=== PATIENT | female | born 1990 | race African-American/Black ===

== ENCOUNTER 2018-05-21 13:53 | Emergency (ER) | payer BC, OTHER ==
[2018-05-21 15:03] LABS: #Basophils 0.1 thou/uL (0.0-0.2); #Eosinphils 0.3 thou/uL (0.0-0.7); #Lymphocytes 2.3 thou/uL (1.20-3.40); #Monocytes 0.6 thou/uL (0.11-0.59); #Neutrophils 5.1 thou/uL (1.40-6.50); %Basophils 0.6 % (0.0-1.0); %Eosinophils 3.4 % (0.0-10.0); %Lymphocytes 27.7 % (21.0-51.0); %Monocytes 7.1 % (0.0-10.0); %Neutrophils 61.3 % (42.0-75.0); Hemoglobin 13.2 g/dL (12.0-16.0); Mean Corpuscular HGB CONC 32.5 g/dL (32.0-36.0); Mean Corpuscular Hemoglobin 27.8 pg (27.0-31.0); Mean Corpuscular Volume 85.5 fL (78.0-98.0); Platelet Count 344 thou/uL (130-400); RBC Distribution Width 11.9 % (11.5-14.5); Red Blood Cell (RBC) Count 4.75 mill/uL (4.20-5.40); White Blood Cell (WBC) Count 8.4 thou/uL (4.8-10.8)
[2018-05-21 15:05] LABS: Bilirubin Negative (Negative); Blood, Urine Negative (Negative); Clarity CLEAR (Clear); Glucose, Urine (Dipstick) Negative (Negative); Leukocyte Small (Negative); Nitrite Negative (Negative); Protein, Urine (Dipstick) Negative (Neg-Trace); Specific Gravity, Urine 1.022 (1.002-1.036); pH, Urine 6.5 (5.0-9.0)
[2018-05-21 15:06] LABS: Bacteria/HPF Rare-Few HPF (None Seen); Hyaline Casts/LPF 0-3 HYALINE CAST LPF (0-3 Hyaline); Pregnancy Test - Urine (BHCG) Negative (Negative); Pregu Control Background? CLEAR/WHITE (CLR/WHITE); Pregu Control Bar Appear? YES (CONTROL BAR); RBC/HPF 0-3 HPF (0-3); Specific Gravity 1.022 (1.002-1.036); WBC/HPF 0-3 HPF (0-3)
[2018-05-21 15:23] LABS: ALT (SGPT) 15 U/L (8-55); AST (SGOT) 16 U/L (5-34); Albumin 4.1 g/dL (3.5-5.0); Alkaline Phosphatase 64 U/L (40-150); Anion Gap 9 mmol/L (10-20); BUN (Urea Nitrogen) 9 mg/dL (7.0-18.7); Bilirubin, Total 0.4 mg/dL (0.2-1.2); Calc. Creatinine Clearance 0 mL/min (70-130); Calcium 9.2 mg/dL (7.8-10.44); Carbon Dioxide 28 mmol/L (22-29); Chloride 105 mmol/L (98-107); Estimated GFR-MDRD Greater than 90; Globulin 3.6 g/dL (2.4-3.5); Glucose 93 mg/dL (70-105); Potassium 4.4 mmol/L (3.5-5.1); Protein, Total 7.7 g/dL (6.0-8.3); Sodium 138 mmol/L (136-145)
[2018-05-21] MEDS ORDERED: cefTRIAXone\\ROCEPHIN 250 MG VIAL ONE (15:32)
[2018-05-21] MEDS ORDERED: Lidocaine 1% (PF) 30 ML VIAL ONE (15:32)
[2018-05-23 20:16] LABS: Chlamydia by PCR Not Detected (NotDetected); GC by PCR Not Detected (NotDetected)
== END 2018-05-21 16:38 | disposition home or self-care (01) ==
LOC: ERS 13:53
DX: N73.9 Female pelvic inflammatory disease, unspecified (principal)
CPT/HCPCS: 36415; 80053; 81003; 81015; 81025; 85025; 87480; 87491; 87510; 87591; 87660; 96372; J0696; J2001

== ENCOUNTER 2019-06-04 03:21 | Emergency (ER) | payer BC ==
[2019-06-07 01:04] LABS: GC by PCR Inconclusive (NotDetected)
[2019-06-07 01:05] LABS: Chlamydia by PCR Inconclusive (NotDetected)
== END 2019-06-04 04:00 | disposition home or self-care (01) ==
LOC: ERS 03:21
DX: N89.8 Other specified noninflammatory disorders of vagina (principal)
CPT/HCPCS: 87480; 87491; 87510; 87591; 87660; 99283

== ENCOUNTER 2019-06-24 20:23 | Emergency (ER) | payer BC ==
[2019-06-24 21:33] LABS: Pregnancy Test - Urine (BHCG) Negative (Negative); Pregu Control Background? CLEAR/WHITE (CLR/WHITE); Pregu Control Bar Appear? YES (CONTROL BAR); Specific Gravity 1.028 (1.002-1.036)
[2019-06-24 21:34] LABS: Bilirubin Negative (Negative); Blood, Urine Negative (Negative); Clarity Clear (Clear); Glucose, Urine (Dipstick) Normal (Negative); Leukocyte 250 Leu/uL (Negative); Mucous/LPF Rare LPF (<2+); Nitrite Negative (Negative); Protein, Urine (Dipstick) 10 mg/dL (Neg-Trace); RBC/HPF 0-3 HPF (0-3); Urobilinogen Normal mg/dL (Less than 2)
[2019-06-24 21:44] LABS: Bacteria/HPF Rare-Few HPF (None Seen)
[2019-06-26 22:37] LABS: Chlamydia by PCR Not Detected (NotDetected); GC by PCR Not Detected (NotDetected)
== END 2019-06-24 22:55 | disposition home or self-care (01) ==
LOC: ERS 20:23
DX: N89.8 Other specified noninflammatory disorders of vagina (principal); N39.0 Urinary tract infection, site not specified
CPT/HCPCS: 81003; 81015; 81025; 87480; 87491; 87510; 87591; 87660; 99283

== ENCOUNTER 2023-01-31 17:20 | Emergency (ER) | payer BC, OTHER ==
[2023-01-31] MEDS ORDERED: Ketorolac Tromethamine 30 MG/ML VIAL ONE (18:07)
[2023-01-31 19:01] LABS: SARS-CoV-2 NAA Rapid Test Not Detected (NotDetected)
== END 2023-01-31 19:51 | disposition home or self-care (01) ==
LOC: ERS 17:20
DX: J20.9 Acute bronchitis, unspecified (principal); Z20.822 Contact with and (suspected) exposure to COVID-19
CPT/HCPCS: 71045; 96372; J1885

== ENCOUNTER 2023-07-22 20:32 | Emergency (ER) | payer BC, OTHER ==
[2023-07-22] MEDS ORDERED: Ibuprofen 800 MG TAB ONE (21:09)
[2023-07-22] MEDS ORDERED: Acetaminophen 500 MG TAB ONE (21:09)
[2023-07-22 22:52] LABS: SARS-CoV-2 NAA Rapid Test DETECTED (NotDetected)
== END 2023-07-22 23:21 | disposition home or self-care (01) ==
LOC: ERS 20:32
DX: U07.1 COVID-19 (principal)
CPT/HCPCS: 71045

== ENCOUNTER 2023-10-05 09:55 | Emergency (ER) | payer BC, OTHER ==
[2023-10-05] MEDS ORDERED: Acetaminophen 500 MG TAB ONE (10:39)
[2023-10-05] MEDS ORDERED: Dexamethasone 10 MG/ML VIAL ONE (11:22)
[2023-10-05] MEDS ORDERED: Bicillin LA 1.2 MILLION UNITS/2 ML SYRINGE ONE (11:23)
[2023-10-05 11:26] LABS: SARS-CoV-2 NAA Rapid Test Not Detected (NotDetected)
== END 2023-10-05 11:40 | disposition home or self-care (01) ==
LOC: ERS 09:55
DX: J02.0 Streptococcal pharyngitis (principal); Z20.822 Contact with and (suspected) exposure to COVID-19
CPT/HCPCS: 87430; 96372; 99283; J0561; J1100

== ENCOUNTER 2024-09-06 14:38 | Emergency (ER) | payer BC ==
[2024-09-06] MEDS ORDERED: Ketorolac Tromethamine 30 MG (1 mL) VIAL ONE (15:37)
[2024-09-06] MEDS ORDERED: Ondansetron ODT 4 MG TAB ONE (15:38)
[2024-09-06] MEDS ORDERED: Acetaminophen 500 MG TAB ONE (15:39)
== END 2024-09-06 15:38 | disposition home or self-care (01) ==
LOC: ERS 14:38
DX: B34.9 Viral infection, unspecified (principal)
CPT/HCPCS: 87428; 96372; 99283; J1885; Q0162